=== PATIENT | female | born 1965 | race Caucasian/White ===

== ENCOUNTER 2017-09-17 10:28 | Emergency (ER) | payer OTHER ==
[~2017-09-17] VITALS: Ht 165.1 cm; Wt 81.6 kg
[~2017-09-17 10:28] MED LIST: CODE1TAB37 PO; DOCUSATE SODIU100 MG PO; Mylicon 125MG PO; SEPTRA DS TABLE1 TAB PO
[2017-09-17] MEDS ORDERED: LEVSIN/SL0.125 MG PO (15:22)
[2017-09-17] MEDS ORDERED: INTESTINEX680 M1 PO (15:22)
[2017-09-17] MEDS ORDERED: NORFLEX100MG PO (15:25)
[2017-09-17] MEDS ORDERED: DICLOFENAC SODI50 MG PO (15:25)
== END 2017-09-17 19:14 | disposition home or self-care (01) ==
LOC: ER 10:28
DX: M54.5 Low back pain (principal); R10.13 Epigastric pain

== ENCOUNTER 2021-08-10 15:03 | Outpatient (CLI) | payer OTHER ==
[~2021-08-10 15:03] MED LIST changes: +DICLOFENAC SODI50 MG PO; +INTESTINEX680 M1 PO; +LEVSIN/SL0.125 MG PO; +NORFLEX100MG PO
== END 2021-08-10 15:12 | disposition home or self-care (01) ==
LOC: LAB 15:03
PROVIDERS: ATTEND Specialist
DX: M06.09 Rheumatoid arthritis without rheumatoid factor, multiple sites (principal); K29.70 Gastritis, unspecified, without bleeding

== ENCOUNTER 2021-10-13 08:27 | Outpatient (CLI) | payer OTHER | END 2021-10-13 08:35 | disposition home or self-care (01) | LOC: MAMO-SONO 08:27 | PROVIDERS: ATTEND Obstetrics & Gynecology | DX: N63.11 Unspecified lump in the right breast, upper outer quadrant (principal); N63.21 Unspecified lump in the left breast, upper outer quadrant ==

== ENCOUNTER 2023-06-10 12:23 | Emergency (ER) | payer OTHER ==
[~2023-06-10] VITALS: Ht 165.1 cm; Wt 77.1 kg
[2023-06-10] MEDS ORDERED: 0.9 % SODIUM CHLORIDE 500 ML IV ONE (14:30)
[2023-06-10] MEDS ORDERED: FAMOTIDINE/PF 20 MG/2 ML VIAL IV ONE (14:30)
[2023-06-10] MEDS ORDERED: ONDANSETRON HCL 2 MG/ML VIAL IV ONE (14:30)
[2023-06-10 15:09] LABS: HEMATOCRIT 39.3 % (36.0-45.00); HEMOGLOBIN 13.2 g/dL (12.0-15.00); MEAN CELL VOLUME 85.6 fL (80.00-100.00); MEAN CORPUSCULAR HEMOGLOBIN 28.8 pg (27.00-32.0); MEAN CORPUSCULAR HGB CONC 33.6 g/dl (32.0-36.0); PH,URINE 6.5 (5.0-8.0); PLATELET COUNT 162 K/uL (150-450); RED BLOOD COUNT 4.59 M/uL (4.00-6.00); RED CELL DISTRIBUTION WIDTH 14.3 % (11.5-14.5); URINE APPEARANCE Clear; URINE BILIRRUBIN Negative (NEGATIVE); URINE BLOOD Negative; URINE COLOR Yellow; URINE GLUCOSE Negative (NEGATIVE); URINE LEUKOCYTE Negative; URINE NITRATE Negative; URINE PROTEIN Negative (NEGATIVE)
[2023-06-10 15:12] LABS: URINE BACTERIA 76.8 uL (0.0-1933); URINE EPITHELIAL CELLS 7.7 uL (0.0-38.8); URINE RBC 2.2 uL (0.0-20.8)
[2023-06-10 16:35] LABS: ALBUMIN 3.8 gm/dL (3.4-5.0); BILIRUBIN TOTAL 0.67 mg/dL (0.3-1.2); CALCIUM 9.5 mg/dL (8.5-10.1); CREATININE SERUM 0.67 mg/dL (0.55-1.02); GFR 90.72; POTASSIUM 3.78 mEq/L (3.5-5.1); TOTAL PROTEIN 7.8 gm/dL (6.4-8.2)
[2023-06-10] MEDS ORDERED: KETOROLAC TROMETHAMINE 30 MG VIAL IV ONE (18:00)
== END 2023-06-10 18:53 | disposition home or self-care (01) ==
LOC: ER 12:23
PROVIDERS: Nurse Practitioner Family
DX: R10.13 Epigastric pain (principal); Z88.2 Allergy status to sulfonamides; Z88.0 Allergy status to penicillin; M54.9 Dorsalgia, unspecified
CPT/HCPCS: 36415; 74177; 96365; 96366; J1885; J2405; J3490; J7042; Q9965

== ENCOUNTER 2023-07-30 10:12 | Outpatient (CLI) | payer OTHER | END 2023-07-30 10:18 | disposition home or self-care (01) | LOC: SONOGRAMA 10:12 | PROVIDERS: ATTEND Specialist | DX: M19.041 Primary osteoarthritis, right hand (principal); M19.042 Primary osteoarthritis, left hand ==

== ENCOUNTER 2023-08-07 09:51 | Outpatient (CLI) | payer OTHER | END 2023-08-07 10:06 | disposition home or self-care (01) | LOC: SONOGRAMA 09:51 | PROVIDERS: ATTEND Specialist | DX: M19.041 Primary osteoarthritis, right hand (principal); M19.042 Primary osteoarthritis, left hand ==

== ENCOUNTER 2023-12-17 12:04 | Outpatient (CLI) | payer OTHER | END 2023-12-17 12:07 | disposition home or self-care (01) | LOC: MAMO-SONO 12:04 | PROVIDERS: ATTEND Obstetrics & Gynecology | DX: N63.10 Unspecified lump in the right breast, unspecified quadrant (principal); N63.20 Unspecified lump in the left breast, unspecified quadrant; Z12.31 Encounter for screening mammogram for malignant neoplasm of breast ==